=== PATIENT | female | born 1945 | race Caucasian/White ===

== ENCOUNTER 2022-08-18 14:13 | Outpatient (CLI) | payer MEDICARE, BC, SELFPAY ==
--- NOTE | 2022-08-18 14:30 | CRLHL7_ITS ---
For Patients: As a result of the Century Cures Act, medical imaging exams and procedure reports are released immediately into your electronic medical record. You may view this report before your referring provider. If you have questions, please contact your health care provider. DXA BONE MINERAL DENSITY STUDY Current height (in): 67.0. Weight (lb): 191.0. Menopause age: 51. Ethnicity: White. Reason for exam: Osteopenia. 1. Have you had a previous hip or vertebral fracture? No. 2. Have you had any fractures during your adult life which did not result from significant trauma (e.g., auto accident)? No. 3. Did either of your parents have a hip fracture? Yes. 4. Do you smoke? No. 5. Have you ever taken Glucocorticoids? No. 6. Do you have rheumatoid arthritis? No. 7. Do you have secondary osteoporosis? Yes. 8. Do you drink 3 or more alcoholic drinks per day? No. 9. Are you being treated for osteoporosis? Yes. 10. Have you ever taken any of the following medications: Actonel, Evista, Fosamax, Miacalcin, Reclast, Boniva, Forteo, HRT (i.e. estrogen/hormone therapy), Protelos, Prolia, Vitamin D, Calcium, other ??? please specify. ANSWER: Yes, Fosamax, vitamin D, calcium. 11. Do you have any of the following medical conditions: Anorexia or bulimia, asthma or emphysema, end stage renal disease, hyperparathyroidism, any seizure disorders, cancer, inflammatory bowel diseases, hysterectomy, other ??? please specify. ANSWER: No. 12. What was your maximum height (inches)? 68. 13. Do you perform weight bearing exercise regularly? No. 14. Do you regularly consume dairy products? No. 15. Do you drink caffeinated beverages? Yes. If female: 16. At what age did your period start? 12. 17. Are you premenopausal? No. 18. How many full term pregnancies have you had? 2. 19. Have you ever missed your period for more than 6 months in a row (not including or menopause)? No. TECHNIQUE: Bone mineral density study was performed using the [employer]. FINDINGS: The results of the study expressed as bone mineral density (BMD) are as follows: Lumbar spine L1 to L4: BMD: 1.185 g/cm2. T-score: 1.3. Z-score: 3.8. Neck Left: BMD: 0.677 g/cm2. T-score: -1.5. Z-score: 0.7. Right: BMD: 0.657 g/cm2. T-score: -1.7. Z-score: 0.5. Total Left: BMD: 0.808 g/cm2. T-score: -1.1. Z-score: 0.9. Right: BMD: 0.808 g/cm2. T-score: -1.1. Z-score: 0.9. IMPRESSION: Osteopenia. *Comparison exams done prior to 02/2020 were performed on different unit, [facility]. COMPARISON: Compared with scan of 10/11/2019, the bone mineral density has decreased by 6.7 percent at the spine and increased by 7.9 percent at the hip. Bereket Giron M.D. Diagnostic/Nuclear Medicine Radiologist [email or web address] Transcribed: 5:18 pm DW/Dictated by: Bereket Giron MD @ 08/18/2022 3:51:00 PM (Electronically Signed)
== END 2022-08-18 14:14 | disposition home or self-care (01) ==
LOC: RAD 14:17
PROVIDERS: PCP Family Medicine; Visit Provider Family Medicine
DX: M85.80 Other specified disorders of bone density and structure, unspecified site (principal); M85.89 Other specified disorders of bone density and structure, multiple sites; Z78.0 Asymptomatic menopausal state
CPT/HCPCS: 77080

== ENCOUNTER 2022-09-15 14:37 | Outpatient (CLI) | payer MEDICARE, BC, SELFPAY ==
[2022-09-15 15:53] LABS: Albumin* 4.1 g/dL (3.3-5.0); Chloride* 104 mmol/L (96-114); Sodium* 140 mmol/L (135-149)
[2022-09-15 15:54] LABS: Potassium* 4.5 mmol/L (3.6-5.1)
[2022-09-15 15:55] LABS: Cholesterol* 201 mg/dL (90-199)
[2022-09-15 15:56] LABS: Alanine Aminotransferase* 15 U/L (4-35); Alkaline Phosphatase* 63 U/L (40-150); Aspartate Amino Transferase* 26 U/L (12-35); Bilirubin Total* 0.7 mg/dL (0.1-1.5); Blood Urea Nitrogen* 18 mg/dL (7-30); Calcium* 9.6 mg/dL (8.4-10.6); Carbon Dioxide* 31 mmol/L (20-32); Estimated Glomerular Filt Rate 58 ml/min; Glucose* 86 mg/dL (60-115); Total Protein* 6.8 g/dL (6.0-8.3); Triglycerides* 59 mg/dL (40-149)
[2022-09-15 15:57] LABS: HDL Cholesterol* 98 mg/dL (>=50); LDL Cholesterol Calculated 91 mg/dL (<100)
--- NOTE | 2022-09-27 09:23 | URNOTE ---
Request received for authorization for Zoledronic Acid (Reclast) ([id number]). Prior Authorization is not required as services are based on medical necessity and follow Medicare guidelines.
== END 2022-09-15 14:38 | disposition home or self-care (01) ==
PROVIDERS: PCP Family Medicine; Visit Provider Family Medicine
DX: E78.5 Hyperlipidemia, unspecified (principal)
CPT/HCPCS: 80053; 80061

== ENCOUNTER 2023-01-14 13:22 | Outpatient (RCR) | payer MEDICARE, BC, SELFPAY ==
--- NOTE | 2023-01-04 14:29 | ONC.NURNOTE ---
patient called and requested reschedule from 01/05 to the following week due to a migraine headache pt aware that she will need lab work first
[2023-01-14 13:45] VITALS: BP 135/71; PULSE 55; RESP 16; TEMP 36.1; O2SAT 94
[2023-01-14 14:02] LABS: Creatinine* 0.9 mg/dL (0.5-1.5); Estimated Glomerular Filt Rate 65 ml/min
[2023-01-14 14:03] LABS: Calcium* 9.3 mg/dL (8.4-10.6)
== END 2023-07-13 23:59 | disposition home or self-care (01) ==
LOC: CCIC 13:22
PROVIDERS: PCP Family Medicine; Referring Provider Family Medicine; Visit Provider Family Medicine
DX: M81.0 Age-related osteoporosis without current pathological fracture (principal)
CPT/HCPCS: 36415; 82310; 82565; 96374; J3489

== ENCOUNTER 2023-06-15 10:16 | Outpatient (CLI) | payer MEDICARE, BC, SELFPAY ==
[2023-06-15 10:24] VITALS: BP 138/74; PULSE 66; RESP 16; O2SAT 95
[2023-06-15] MEDS: TETRACAINE 0.5% OPHTH 1 DROP EYE-BOTH ×3 (10:28→11:13)
[2023-06-15] MEDS: BRIMONIDINE TARTRATE 0.2% OPHTH 1 DROP EYE-BOTH ×2 (10:29→11:25)
--- NOTE | 2023-06-15 12:00 | P.OPTPRC_ITS ---
Procedure Note Date of procedure: 06/15/23 Will [facility] bill your pro fee for this procedure?: Yes Procedure Description: SURGEON: Daya Perez MD PREOPERATIVE DIAGNOSIS: Posterior capsular opacity, right and left eye POSTOPERATIVE DIAGNOSIS: Posterior capsular opacity, right and left eye PROCEDURE: YAG laser capsulotomy, both eyes ANESTHESIA: Topical. ESTIMATED BLOOD LOSS: None PATHOLOGY SPECIMEN: None COMPLICATIONS: None INDICATIONS: See consult note for details. The risks, benefits and alternatives of the procedure were explained to the patient, who elected to proceed and signed informed consent to do so. PROCEDURE: The patient was brought to the pre-holding area where the right and left eyes were identified as the operative eyes. I placed my initials above the eyes. The following was given in both eyes: The patient received 2 sets of 1 drop of 0.5% tetracaine and 1 drop of 1% tropicamide. They also received 1 drop of 0.2% brimonidine. They received 1 drop of 0.5% tetracaine immediately prior to bringing them back for the procedure. The patient was then brought to the procedure room where the right and left eyes were again identified as the operative eyes. A YAG Farshad capsulotomy lens was placed on the right eye. The laser was administered using a total number of 16 shots with an energy of 2.4 mJ per shot for a total energy of 38 mJ. The patient tolerated the procedure well. A YAG Farshad capsulotomy lens was placed on the left eye. The laser was administered using a total number of 28 shots with an energy of 2.4 mJ per shot for a total energy of 67 mJ. The patient tolerated the procedure well. DISPOSITION: The patient was taken back to the pre-holding area and given 1 drop of 0.2% brimonidine in both eyes. They were discharged to home in stable condition. The patient was instructed to call me or go to the emergency department with any sudden change, including dramatic loss of vision, severe pain in the eye or eyebrow region, nausea, or vomiting. The patient was instructed to use the 0.2% brimonidine 1 drop 2 times a day in both eyes for 1 week. The patient will follow up in the clinic in 1-2 weeks.
== END 2023-06-15 11:27 | disposition home or self-care (01) ==
LOC: OP CLINIC 10:16 → EYE PRC 10:27
PROVIDERS: PCP Family Medicine; Visit Provider Ophthalmology
DX: H26.493 Other secondary cataract, bilateral (principal)
CPT/HCPCS: 66821; A9270

== ENCOUNTER 2023-08-25 15:17 | Outpatient (CLI) | payer MEDICARE, BC, SELFPAY | END 2023-08-25 15:18 | disposition home or self-care (01) | LOC: NFLDREF 08-26 11:44 | PROVIDERS: PCP Family Medicine; Referring Provider Family Medicine; Visit Provider Family Medicine | DX: I10 Essential (primary) hypertension (principal); E78.5 Hyperlipidemia, unspecified | CPT/HCPCS: 80053; 80061 ==

== ENCOUNTER 2024-09-13 14:21 | Outpatient (CLI) | payer MEDICARE, BC, SELFPAY | END 2024-09-13 14:22 | disposition home or self-care (01) | LOC: NFLDREF 09-17 06:23 | PROVIDERS: PCP Family Medicine; Referring Provider Family Medicine; Visit Provider Family Medicine | DX: I10 Essential (primary) hypertension (principal); E78.5 Hyperlipidemia, unspecified; M85.80 Other specified disorders of bone density and structure, unspecified site | CPT/HCPCS: 80053; 80061 ==

== ENCOUNTER 2024-11-22 15:23 | Outpatient (CLI) | payer MEDICARE, BC, SELFPAY | END 2024-11-22 15:24 | disposition home or self-care (01) | LOC: RAD 15:24 | PROVIDERS: PCP Family Medicine; Visit Provider Family Medicine | DX: M85.89 Other specified disorders of bone density and structure, multiple sites (principal); Z78.0 Asymptomatic menopausal state | CPT/HCPCS: 77080 ==

== ENCOUNTER 2025-01-30 13:42 | Outpatient (RCR) | payer MEDICARE, BC, SELFPAY ==
[2025-01-30 14:27] LABS: Calcium* 9.1 mg/dL (8.4-10.6); Creatinine* 1.1 mg/dL (0.5-1.5); Estimated Glomerular Filt Rate 51 ml/min
[2025-01-30 14:44] VITALS: BP 111/71; PULSE 115; RESP 18; TEMP 36.6; O2SAT 92
[2025-01-30] MEDS: SODIUM CHLORIDE 0.9 % (FLUSH) 10 ML SYRINGE IVF (15:00)
== END 2025-07-29 23:59 | disposition home or self-care (01) ==
LOC: CCIC 13:42
PROVIDERS: PCP Family Medicine; Referring Provider Family Medicine; Visit Provider Clinical Nurse Specialist
DX: M85.80 Other specified disorders of bone density and structure, unspecified site (principal); E55.9 Vitamin D deficiency, unspecified
CPT/HCPCS: 36415; 82310; 82565; 96365; J3489

== ENCOUNTER 2025-09-16 15:03 | Outpatient (CLI) | payer MEDICARE, BC, SELFPAY | END 2025-09-16 15:04 | disposition home or self-care (01) | LOC: NFLDREF 09-23 05:47 | PROVIDERS: PCP Family Medicine; Referring Provider Family Medicine; Visit Provider Family Medicine | DX: Z00.00 Encounter for general adult medical examination without abnormal findings (principal); I10 Essential (primary) hypertension; E78.5 Hyperlipidemia, unspecified | CPT/HCPCS: 80053; 80061 ==